=== PATIENT | female | born 1975 | race Caucasian/White ===

== ENCOUNTER → 2016-09-06 | Outpatient (CLI) | payer BC, OTHER ==
[~2016-09-06] MED LIST: FISH1CAP15 PO; HYDR-3729 PO; MULT-974 PO; OXYC-12 PO; TERBIN250T PO; TRAM-21 PO; [UNRECOGNIZED DRUG - OTHER]
--- NOTE | 2016-09-06 09:32 | Diagnostic Imaging Report ---
PROCEDURE: MRI lumbar spine. TECHNIQUE: A multiplanar/multisequence MRI of the lumbar spine was performed without contrast. INDICATION: Back pain. FINDINGS: There is satisfactory alignment of the lumbar spine. The vertebral body heights are preserved. There is disc desiccation at the lower lumbar spine levels. There is mild disc height loss at L5-S1. There is an indeterminate 1.3 cm lesion in the marrow involving the L4 vertebral body with T2 hyperintense and T1 hypointense signal. No prior studies are available for comparison. This could be an atypical hemangioma. The cauda equina and conus medullaris appear grossly unremarkable. T12-L1: There is no disc herniation. There is no spinal canal or foraminal stenosis. L1-2: There is a mild disc bulge with no significant spinal canal or foraminal stenosis. L2-3: No disc herniation. There is mild facet hypertrophy. No central canal, lateral recess, or foraminal stenosis. L3-4: There is no significant disc herniation. There is mild to moderate facet hypertrophy. No central canal, lateral recess, or foraminal stenosis. L4-5: There is a diffuse disc bulge with a superimposed focal central disc protrusion. There is moderate facet hypertrophy. There is no central canal stenosis. The lateral recess demonstrates mild narrowing on the left and no significant stenosis on the right. The foramina appear patent bilaterally. L5-S1: There is a diffuse disc bulge. There is no central canal stenosis. There is a mild left lateral recess stenosis. The right lateral recess is patent. Mild foraminal narrowing is seen on both sides. IMPRESSION: 1. Generally mild degenerative changes, more prominent in the lower lumbar spine as described. 2. An indeterminate 1.3 cm lesion in the L4 vertebral body is questioned to be an atypical hemangioma. If the patient has risk factors or a history of malignancy, then evaluation with a bone scan could be considered. Dictated by: Dictated on workstation # [id number]
== END ==
LOC: RAD 08:01
PROVIDERS: ATTEND Nurse Practitioner Family
DX: M51.26 Other intervertebral disc displacement, lumbar region (principal); R93.7 Abnormal findings on diagnostic imaging of other parts of musculoskeletal system
CPT/HCPCS: 72148

== ENCOUNTER → 2017-01-27 | Outpatient (CLI) | payer BC ==
--- NOTE | 2017-01-27 09:34 | Diagnostic Imaging Report ---
EXAM: LUMBAR SPINE - 2-3 VIEWS INDICATION: Low back pain. COMPARISON: Lumbar spine MRI without contrast 09/06/2016. FINDINGS: There are 5 lumbar type vertebral bodies. Normal alignment. Vertebral body heights preserved. Mild scattered degenerative endplate changes. No fractures. Nonspecific bowel gas pattern in the visualized abdomen. IMPRESSION: No acute radiographic findings in the lumbar spine. Dictated by: Dictated on workstation # [id number]
--- NOTE | 2017-01-29 09:46 | Diagnostic Imaging Report ---
EXAMINATION: Bilateral screening mammogram 2D views with tomosynthesis. The current study was also evaluated with a Computer Aided Detection (CAD) system. INDICATION: Screening. PERSONAL HISTORY: No current complaints stated on the questionnaire. COMPARISON: 01/09/2016. FINDINGS: The breasts are composed of heterogeneously dense parenchyma which may mammographic sensitivity. There is no mass, architectural distortion, or suspicious cluster of calcifications. Allowing for technique and positional differences, no suspicious change is seen. IMPRESSION: Dense breasts with no definite change. ACR BI-RADS Category 2: Benign findings. Result letter will be mailed to the patient. Note: At least 10% of breast cancer is not imaged by mammography. Dictated by: Dictated on workstation # [id number]
== END ==
LOC: RAD 08:54
PROVIDERS: ATTEND Family Medicine
DX: Z12.31 Encounter for screening mammogram for malignant neoplasm of breast (principal); M54.5 Low back pain; Z87.39 Personal history of other diseases of the musculoskeletal system and connective tissue; Z87.2 Personal history of diseases of the skin and subcutaneous tissue
CPT/HCPCS: 72100

== ENCOUNTER → 2017-10-29 | Outpatient (CLI) | payer BC ==
--- NOTE | 2017-10-29 11:44 | Diagnostic Imaging Report ---
PROCEDURE: US Non-ob pelvis comp/trans. TECHNIQUE: Multiple realtime grayscale images were obtained of the pelvis in various projections endovaginally. Transabdominal imaging was also performed. INDICATION: Abnormal uterine bleeding. FINDINGS: The uterus measures 6.2 x 3.6 x 3.3 cm. No myometrial mass is detected. Endometrium is 5 mm in thickness. The right ovary measures 4.0 x 3.5 x 2.9 cm and the left ovary measures 2.4 x 1.3 x 2.0 cm. There is a cyst involving the right ovary measuring 2.9 x 2.3 x 3.2 cm. There is blood flow to both ovaries. No other adnexal mass or free fluid is seen. IMPRESSION: Right ovarian cyst. No other significant abnormality is detected. Dictated by: Dictated on workstation # [id number]
== END ==
LOC: RAD 10:29
PROVIDERS: ATTEND Family Medicine
DX: N83.201 Unspecified ovarian cyst, right side (principal)
CPT/HCPCS: 76830; 76856

== ENCOUNTER → 2018-01-13 | Outpatient (CLI) | payer BC ==
--- NOTE | 2018-01-13 15:20 | Diagnostic Imaging Report ---
PROCEDURE: US left lower extremity venous. TECHNIQUE: Multiple real-time grayscale images were obtained over the left lower extremity in various projections. Additional duplex Doppler and color Doppler images were also obtained. INDICATION: Left-sided leg pain. There is no evidence of a left lower extremity DVT. Lower extremity deep venous system shows normal compressibility with normal response to augmentation and Valsalva. No fluid collection or mass is seen. IMPRESSION: No evidence of left lower extremity DVT. Dictated by: Dictated on workstation # [id number]
== END ==
LOC: RAD 14:30
PROVIDERS: ATTEND Nurse Practitioner Family
DX: M79.605 Pain in left leg (principal)

== ENCOUNTER → 2018-03-04 | Outpatient (CLI) | payer BC ==
--- NOTE | 2018-03-04 12:12 | Diagnostic Imaging Report ---
INDICATION: Routine screening. Comparison is made with prior mammograms from 01/27/2017 and 01/09/2016. 2-D and 3-D bilateral screening mammography was performed with computer-aided Detection (CAD) system. FINDINGS: Both breasts are heterogeneously dense, limiting the sensitivity of mammography. The parenchymal pattern is stable. No mass or malignant-appearing microcalcifications are seen. The axillae are unremarkable. IMPRESSION: No mammographic features suspicious for malignancy are identified. ACR BI-RADS Category 1: Negative. Result letter will be mailed to the patient. Note: At least 10% of breast cancer is not imaged by mammography. Dictated by: Dictated on workstation # [id number]
== END ==
LOC: RAD 09:35
PROVIDERS: ATTEND Family Medicine
DX: Z12.31 Encounter for screening mammogram for malignant neoplasm of breast (principal)
CPT/HCPCS: 77067

== ENCOUNTER → 2019-03-15 | Outpatient (CLI) | payer BC ==
--- NOTE | 2019-03-15 10:22 | Diagnostic Imaging Report ---
INDICATION: Routine screening. Comparison is made with prior mammogram from 03/04/2018 and 01/27/2017. 2-D and 3-D bilateral screening mammography was performed with CAD. Both breasts remain heterogeneously dense, limiting the sensitivity of mammography. Rounded density in the outer left breast at anterior depth on the CC view is noted. No definite correlate on the MLO view is identified. Additional views are recommended. Right breast unremarkable. No suspicious microcalcifications are seen. Axillae are unremarkable. IMPRESSION: BI-RADS 0 Left breast density. Additional views are recommended. ACR BI-RADS Category 0: Incomplete. (Needs additional imaging evaluation). Result letter will be mailed to the patient. Note: At least 10% of breast cancer is not imaged by mammography. Dictated by: Dictated on workstation # [id number]
== END ==
LOC: RAD 08:28
PROVIDERS: ATTEND Family Medicine
DX: Z12.31 Encounter for screening mammogram for malignant neoplasm of breast (principal); R92.8 Other abnormal and inconclusive findings on diagnostic imaging of breast
CPT/HCPCS: 77067

== ENCOUNTER → 2019-03-24 | Outpatient (CLI) | payer BC ==
--- NOTE | 2019-03-24 09:43 | Diagnostic Imaging Report ---
INDICATION: Left breast density. Patient presents for additional views. COMPARISON: Correlation is made with the screening study from 03/15/2019. TECHNIQUE: 2D and 3D unilateral left diagnostic mammography was performed. This includes spot compression CC, rolled CC, and conventional 90 degree lateral views. FINDINGS: Additional views fail to demonstrate a discrete mass. The area of density in the lateral left breast shows normal dispersion of fibroglandular elements and most likely represented superimposed tissue. No microcalcifications are seen. IMPRESSION: Additional views fail to demonstrate a discrete mass. The patient may return to routine annual screening mammography. ACR BI-RADS Category 1: Negative. Result letter will be mailed to the patient. Note: At least 10% of breast cancer is not imaged by mammography. Dictated by: Dictated on workstation # [id number]
== END ==
LOC: RAD 09:04
PROVIDERS: ATTEND Family Medicine
DX: N63.20 Unspecified lump in the left breast, unspecified quadrant (principal)

== ENCOUNTER → 2020-04-24 | Outpatient (CLI) | payer BC ==
--- NOTE | 2020-04-24 16:22 | Diagnostic Imaging Report ---
INDICATION: Routine screening. COMPARISON: 03/15/2019 and 03/04/2018. TECHNIQUE: 2D and 3D bilateral screening mammography was performed with CAD. FINDINGS: Both breasts are heterogeneously dense, limiting the sensitivity of mammography. No mass or malignant appearing microcalcifications are seen. The axillae are unremarkable. IMPRESSION: No mammographic features suspicious for malignancy are identified. ACR BI-RADS Category 1: Negative. Result letter will be mailed to the patient. Note: At least 10% of breast cancer is not imaged by mammography. Dictated by: Dictated on workstation # [id number]
== END ==
LOC: RAD 14:45
PROVIDERS: ATTEND Family Medicine
DX: Z12.31 Encounter for screening mammogram for malignant neoplasm of breast (principal)
CPT/HCPCS: 77063; 77067

== ENCOUNTER → 2021-08-24 | Outpatient (CLI) | payer BC ==
--- NOTE | 2021-08-24 11:18 | Diagnostic Imaging Report ---
INDICATION: Routine screening. Comparison is made with prior mammograms of 04/24/2020 and 03/15/2019. 2-D and 3-D bilateral screening mammography was performed with CAD. Both breasts are heterogeneously dense, limiting the sensitivity of mammography. The parenchymal pattern is stable. No mass or malignant-appearing microcalcifications are seen. Axillae are unremarkable. IMPRESSION: No mammographic features suspicious for malignancy are identified. ACR BI-RADS Category 1: Negative. Result letter will be mailed to the patient. Note: At least 10% of breast cancer is not imaged by mammography. BI-RADS Category 1 Dictated by: Dictated on workstation # [id number]
== END ==
LOC: RAD 08:51
PROVIDERS: ATTEND Family Medicine
DX: Z12.31 Encounter for screening mammogram for malignant neoplasm of breast (principal)
CPT/HCPCS: 77063; 77067

== ENCOUNTER 2022-03-27 05:36 | Outpatient (CLI) | payer BC ==
[~2022-03-27] VITALS: Ht 167.7 cm; Wt 75.9 kg
[2022-03-27] MEDS ORDERED: MULT-1136 PO (09:02)
== END 2022-03-27 09:06 ==
LOC: PREOP 05:36
PROVIDERS: ATTEND Internal Medicine
DX: Z01.818 Encounter for other preprocedural examination (principal)

== ENCOUNTER 2022-04-05 07:15 | Day surgery (SDC) | payer BC ==
--- NOTE | 2022-03-25 16:41 | HISTORY AND PHYSICAL ---
COLONOSCOPY HISTORY AND PHYSICAL HISTORY OF PRESENT ILLNESS: The patient is a 46-year-old white female seen for initial office visit requesting her first screening colonoscopy. She is deemed to be of average risk. She is not aware of any family history for colon cancer or inflammatory bowel disease. She denies bowel habit change melena or bright red blood per rectum. In the past, she has had some pelvic pain and irregular menses. This has been felt to be due to perimenopausal state. She denies hot flashes or difficulty with sleep. PAST SURGICAL HISTORY: Significant for cholecystectomy over 9 years ago. PAST MEDICAL HISTORY: Otherwise, noncontributory. She takes no medication. PAST SURGICAL HISTORY: Other than cholecystectomy, no previous hospitalizations. 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 She has no past smoking history and no past alcohol use history. She is . FAMILY HISTORY: Father is living at age of 73 with a history of rheumatoid arthritis. Mother is living at the age of 73 with history of hypertension, hyperlipidemia and fibromyalgia, but no known history of coronary artery disease. She has one sister living in her 40s with hyperlipidemia. PHYSICAL EXAMINATION: GENERAL: Reveals a white female who appeared to be in no acute distress. VITAL SIGNS: Blood pressure 114/72. Weight 167 pounds. HEENT: Unremarkable. Sclerae nonicteric. Oral cavity clear, no exudates noted. Mallampati 2 oropharyngeal configuration. CHEST: Clear to auscultation. CARDIOVASCULAR: Reveals a regular rate and rhythm without murmur, S3, or S4. ABDOMEN: Soft, supple without mass, organomegaly, or tenderness. Well-healed trocar incisions noted. EXTREMITIES: Revealed no cyanosis, clubbing or edema. SKIN: Reveals no suspicious nevi. ASSESSMENT AND PLAN: Essentially normal well-woman. The patient is being set up for her first screening colonoscopy need to be of average risk as noted above. Prep instructions were given and questions were answered. Job ID: [id number] DocumentID: [id number] Dictated Date: 03/14/2022 16:09:21 Mold Repair Technician Date: 03/14/2022 16:25:00 Dictated By: JORGE VELA MD
[~2022-04-05] VITALS: Ht 167.7 cm; Wt 75.9 kg
[~2022-04-05 07:15] MED LIST changes: +MULT-1136 PO
[2022-04-05] MEDS ORDERED: LACTATED RINGERS 1,000 ML IV STA (07:17)
[2022-04-05 07:34] VITALS: BP 147/81
[2022-04-05] MEDS ORDERED: PROPOFOL INJECTION 50 ML IV ONE ×2 (07:35→08:12)
[2022-04-05] MEDS ORDERED: MIDAZOLAM 2 MG/2 ML (VERSED) VIAL ONE (07:35)
--- NOTE | 2022-04-05 07:45 | Pre-Op Note & Conscious Sedat ---
Pre-Operative Progress Note Date H&P Reviewed: Apr 05, 2022 Time H&P Reviewed: 07:44 History & Physical: H&P Reviewed, Patient Examed, No changes noted Pre-Op Diagnosis: screening Conscious Sedation Pre-Proced ASA Score 2 For ASA 3 and 4: Consider anesthesia and medical clearance. Also, for patients with a history of failed moderate sedation consider anesthesia. Airway Lungs Heart ASA score ASA 1: a normal healthy patient ASA 2: a patient with a mild systemic disease (mid diabetes, controlled hypertension, obesity ASA 3: a patient with a severe systemic disease that limits activity (angina, COPD, prior Myocardial infarction) ASA 4: a patient with an incapacitating disease that is a constant threat to life (CHF, renal failure) ASA 5: a moribund patient not expected to survive 24 hrs. (ruptured aneurysm) ASA 6: a declared brain- patient whose organs are being harvested. For emergent operations, add the letter E after the classification Mallampati Classification Grade 1 Sedation Plan Analgesia, Amnesia, Plan communicated to team members, Discussed options with patient/fam, Discussed risks with patient/fam The patient is an appropriate candidate to undergo the planned procedure, sedation, and anesthesia. The patient immediately re-assessed prior to indication. JORGE VELA MD Apr 05, 2022 07:45
[2022-04-05 08:20] VITALS: BP 131/74
--- NOTE | 2022-04-05 08:21 | Progress Note-Post Operative ---
Post-Procedure Note Physician (s)/Software Firmware Engineer (s) Physician JORGE VELA MD Pre-Procedure Diagnosis Pre-Procedure Diagnosis: screening Post-Procedure Diagnosis Post-operative diagnosis: Prior to undergoing colonoscopy digital rectal evaluation was performed. Anal sphincter tone was normal and the perianal reflexes intact. No abnormalities noted on digital inspection anal canal or distal rectal vault. The colonoscope was then inserted into the rectum and under direct visualization advanced to the cecum. The cecum was identified by identification of the ileocecal valve and the cecal strap. Photographic documentation was obtained. Careful inspection was made as the colonoscope was withdrawn. Quality the prep was good. Finding: There were no evidence for internal or external hemorrhoids. The rectum sigmoid colon descending colon transverse colon hepatic flexure splenic flexure ascending colon and cecum were unremarkable with no evidence for neoplasia or diverticular disease. Assessment: Normal colonoscopy to the cecum under good prep conditions. As the patient is not aware of any family history for colon cancer would advocate consideration for repeat screening colonoscopy in 10 years. CC: Dr. Estrellita Mills DO. JORGE VELA MD Apr 05, 2022 08:21
[2022-04-05 08:25] VITALS: BP 124/74
[2022-04-05 08:40] VITALS: BP 135/93
--- NOTE | 2022-04-05 14:03 | Anesthesia-General Post-Op ---
MAC Patient Condition Mental Status/LOC: Same as Preop Cardiovascular: Satisfactory Nausea/Vomiting: Absent Respiratory: Satisfactory Pain: Controlled Complications: Absent Post Op Complications Complications None Follow Up Care/Instructions Patient Instructions None needed. Anesthesiology Discharge Order Discharge Order Patient is doing well, no complaints, stable vital signs, no apparent adverse anesthesia problems. No complications reported per nursing. DENITA SAUCEDO CRNA Apr 05, 2022 14:03
== END 2022-04-05 09:10 | disposition home or self-care (01) ==
LOC: ENDO 07:15
PROVIDERS: ATTEND Internal Medicine
DX: Z12.11 Encounter for screening for malignant neoplasm of colon (principal)
CPT/HCPCS: 84703

== ENCOUNTER → 2022-09-30 | Outpatient (CLI) | payer BC ==
--- NOTE | 2022-09-30 10:05 | Diagnostic Imaging Report ---
Indication: Routine screening. Comparison is made with prior mammogram 08/24/2021 and 04/24/2020. 2-D and 3-D bilateral screening mammography was performed with CAD. The current study was also evaluated with a Computer Aided Detection (CAD) system. Both breasts are heterogeneously dense, limiting the sensitivity of mammography. The parenchymal pattern is stable. No mass or malignant-appearing microcalcifications are seen. Axillae are unremarkable. IMPRESSION: BI-RADS Category 1 No mammographic features suspicious for malignancy are identified. ACR BI-RADS Category 1: Negative. Result letter will be mailed to the patient. Note: At least 10% of breast cancer is not imaged by mammography. Dictated by: Dictated on workstation # [id number]
== END ==
LOC: RAD 08:15
PROVIDERS: ATTEND Nurse Practitioner
DX: Z12.31 Encounter for screening mammogram for malignant neoplasm of breast (principal)
CPT/HCPCS: 77063; 77067